=== PATIENT | female | born 1965 | race Caucasian/White ===

== ENCOUNTER 2017-10-11 06:37 | Day surgery (SDC) | payer BC ==
[~2017-10-11] VITALS: Ht 170.2 cm; Wt 144.0 kg
[~2017-10-11 06:37] MED LIST: COZA100T PO; LEVE500T8 PO; PANT40TA3 PO
[2017-10-11 07:07] VITALS: BP 137/78; PULSE 89; RESP 20; TEMP 97.8; O2SAT 96
[2017-10-11] MEDS: SODIUM CHLORIDE 0.9% 1000 ML IV SCH ×2 (07:42→08:26)
[2017-10-11] MEDS ORDERED: LEVOFLOXACIN 500 MG PREMIX 100 ML - nephrostomy tube insertion or exchange IV SCH (07:45)
[2017-10-11] MEDS ORDERED: LORazepam 2 MG/ML VIAL ONE (08:40)
[2017-10-11] MEDS ORDERED: fentaNYL CITRATE 250 MCG/5 ML AMP ONE (08:40)
[2017-10-11] MEDS ORDERED: MIDAZOLAM HCL 2 MG/2 ML VIAL ONE ×2 (08:40→09:39)
[2017-10-11 10:11] VITALS: BP 99/60; PULSE 87; RESP 18; TEMP 97.9; O2SAT 96
[2017-10-11 10:26] VITALS: BP 102/74; PULSE 84; RESP 17; O2SAT 98
--- NOTE | 2017-10-11 10:27 | PD.RAD ---
Post Procedure Progress Note Pre Procedure Diagnosis: (1) Renal calculus, left Post Procedure Diagnosis: (1) Renal calculus, left Procedure Date: Oct 11, 2017 Supervising Radiologist: Herson Avila Proceduralist/Assist: Moises Sanchez, RT(R), Belia Samson RT(R) Anesthesia: Local, Analgesia, Conscious Sedation Plan of Activity Patient to Unit: ROPU Patient Condition: Good See PACS Report for procedural detail/treatment Drainage Procedure Procedure 1 Imaging Guidance: Fluoroscopy Procedure Type: Nephrostomy (8Fr PCN), Ureteral Stent (5 Fr pigtail to bladder) Procedure: Placement Drainage: [place] drainage Fluid Description: Yellow Findings: Multiple renal calculi. Existing ureteric stent. Upper pole access to facilitate multiple nephrolithotomy. 5Fr pigtail to bladder. Possible stenosis near UPG (difficult to pass catheter into proximal ureter) Herson Avila MD Oct 11, 2017 10:27
[2017-10-11 10:56] VITALS: BP 121/76; PULSE 87; RESP 18; O2SAT 97
[2017-10-11 11:58] VITALS: BP 93/63; PULSE 83; RESP 20; TEMP 97.8; O2SAT 99
[2017-10-11] MEDS ORDERED: SODIUM CHLORID 0.9% 500 ML IV PRN (12:00)
[2017-10-11] MEDS ORDERED: INSULIN HUMAN REGULAR 1,000 UNITS/10 ML VIAL SQ PRN (12:00)
[2017-10-11] MEDS ORDERED: LACTATED RINGER'S 1000 ML IV PRN (12:00)
[2017-10-11] MEDS ORDERED: CHLORHEXIDINE GLUCONATE 2 % 1 PACK (2 CLOTHS) TOPICAL PRN (12:00)
[2017-10-11] MEDS ORDERED: POVIDONE IODINE 5% (ANTISEPSIS KIT) 4 APPLICATIONS EACH NARE PRN (12:00)
[2017-10-11] MEDS ORDERED: METOPROLOL TARTRATE 25 MG TAB PO PRN (12:00)
[2017-10-11] MEDS ORDERED: SODIUM CHLORIDE 0.9% IV SCH ×2 (12:15)
[2017-10-11] MEDS ORDERED: GENTAMICIN IV SCH ×2 (12:15)
[2017-10-11] MEDS ORDERED: oxyCODONE/ACETAMINOPHEN 5 MG/325 MG TAB ONE (13:22)
[2017-10-11] MEDS ORDERED: oxyCODONE/ACETAMINOPHEN 5 MG/325 MG TAB PO ONE (13:45)
--- NOTE | 2017-10-12 14:42 | RADRPT ---
EXAM DATE/TIME: 10/11/2017 09:48 [facility] COMPARISON: No previous studies available for comparison. INDICATIONS : Patient presents with renal calculi in need of nephrostomy tube for procedure. MEDICAL HISTORY : HTN Kidney Stone Migraines SURGICAL HISTORY : Cholecystectomy Gallbladder Removal ENCOUNTER: Initial ACUITY: 3 weeks PAIN SCORE: 0/10 FLUORO TIME: 12.1 minutes IMAGE SERIES: 10 SEDATION TIME: 45 minutes CONTRAST: 15 cc Omnipaque (iohexol) 350 MEDICATION(S): 1.) 6 mg midazolam (Versed) IV 2.) 250 mcg fentanyl (Sublimaze) IV 3.) 2 mg lorazepam (Ativan) IV DEVICE(S): 1.) 8 Salvadorean nephrostomy catheter 2.) 5F 90cm pigtail catheter PROCEDURE : 1. fluoroscopic guided nephrostomy tube placement 2. Fluoroscopic-guided ureteric stent placement The risks, benefits and alternatives to the procedure were explained and verbal and written consent w as obtained. The site was prepped in sterile fashion. Full sterile technique was used, including ca p, mask, sterile gloves and gown and a large sterile sheet. Hand hygiene and 2% chlorhexidine and/or betadine/alcohol prep was utilized per protocol for cutaneous antisepsis. The skin and subcutaneous tissues were infiltrated with local anesthetic solution. Patient has an existing double-J stent in the left renal collecting system. After appropriate local a nesthetic, a 7 inch 22 Salvadorean spinal needle is advanced into the proximal [place] loop. Inner stylet was removed with free flow of urine. CO2 was injected through the needle to delineate the posterior avery ceal system. As the procedure was being performed for nephrolithotomy, and upper pole calyx was selec coreen. The overlying skin was anesthetized with an additional 7 cc 1% Xylocaine and a dermatotomy made with an 11 blade scalpel. The cutaneous tissues were bluntly dissected. The 18 gauge Rock blunt needle was advanced into the upper pole calyx. No 35 wire was advanced and the outer cannula. A hockey-stick catheter and Glidewire were then manipulated through the UPJ down the ureter and into the urinary bladder. Of note, appears to be some degree of stenosis at the UPJ. With a stiff glide wire in the bladder, a 6 Salvadorean, 25 cm side-port sheath was advanced over the wire and into the ureter. A second wire was placed through the sheath. Over the stiff Glidewire, a 5 Fren ch pigtail catheter was advanced into the urinary bladder. This was capped. A second 8 Salvadorean nephros cally tube was then advanced over the remaining wire and the [place] loop was curled in the renal pelvis. Both catheters were secured to the skin surface with 2-0 silk suture. CONCLUSION: 1. Successful placement of 8 Salvadorean nephrostomy tube in the left renal collecting system. 2. Percutaneous placement of a 5 Salvadorean pigtail catheter to the urinary bladder to facilitate future nephrolithotomy Herson Avila MD on October 12, 2017 at 14:35 Board Certified Radiologist. This report was verified electronically.
== END 2017-10-11 14:00 | disposition home or self-care (01) ==
LOC: HSDC 06:37 → HRIP 06:42 → HSDC 14:00
PROVIDERS: ATTEND Urology
DX: N20.0 Calculus of kidney (principal); I10 Essential (primary) hypertension; G43.909 Migraine, unspecified, not intractable, without status migrainosus; G47.30 Sleep apnea, unspecified; Z87.442 Personal history of urinary calculi; Z53.9 Procedure and treatment not carried out, unspecified reason
CPT/HCPCS: 50695; 85610; 85730; 86850; 86900; 86901; 99152; 99153; 99211; C1729; C1769; C1887; J1956; J2060; J2250; J3010; J7030; G0463

== ENCOUNTER 2017-10-25 07:35 | Observation (INO) | payer BC ==
[~2017-10-25] VITALS: Ht 170.2 cm; Wt 143.5 kg
[2017-10-25] MEDS ORDERED: METOPROLOL TARTRATE 25 MG TAB PO PRN (08:15)
[2017-10-25] MEDS ORDERED: INSULIN HUMAN REGULAR 1,000 UNITS/10 ML VIAL SQ PRN (08:15)
[2017-10-25] MEDS ORDERED: SODIUM CHLORIDE 0.9% IV SCH ×3 (08:15→09:15)
[2017-10-25] MEDS ORDERED: CHLORHEXIDINE GLUCONATE 2 % 1 PACK (2 CLOTHS) TOPICAL PRN (08:15)
[2017-10-25] MEDS ORDERED: POVIDONE IODINE 5% (ANTISEPSIS KIT) 4 APPLICATIONS EACH NARE PRN (08:15)
[2017-10-25] MEDS ORDERED: SODIUM CHLORID 0.9% 500 ML IV PRN (08:15)
[2017-10-25] MEDS ORDERED: GENTAMICIN IV SCH ×3 (08:15→09:15)
[2017-10-25] MEDS ORDERED: LACTATED RINGER'S 1000 ML IV PRN (08:15)
[2017-10-25] MEDS ORDERED: IOHEXOL 300 INJ 100 ML IV ONE (10:09)
[2017-10-25] MEDS ORDERED: LIDOCAINE HCL 1% PF 5 ML SYRINGE OTHER ONE (12:00)
[2017-10-25] MEDS ORDERED: PROPOFOL 200 MG/20 ML AMP IV ONE (12:00)
[2017-10-25] MEDS ORDERED: ONDANSETRON HCL 4 MG/2 ML VIAL IV PUSH ONE (12:00)
[2017-10-25] MEDS ORDERED: DEXAMETHASONE SOD PHOS 4 MG/ML VIAL IV ONE (12:00)
[2017-10-25] MEDS ORDERED: GLYCOPYRROLATE 1 MG/5 ML SYRINGE IV PUSH ONE (12:00)
[2017-10-25] MEDS ORDERED: SUCCINYLCHOLINE CHLORIDE 100 MG/5 ML SYRINGE IV PUSH ONE (12:00)
[2017-10-25] MEDS ORDERED: ROCURONIUM INJ 50 MG/5 ML SYRINGE IV PUSH ONE (12:00)
[2017-10-25] MEDS ORDERED: NEOSTIGMINE 5 MG/5 ML SYRINGE IV PUSH ONE (12:00)
[2017-10-25] MEDS ORDERED: oxyCODONE/ACETAMINOPHEN 5 MG/325 MG TAB PO PRN (13:30)
[2017-10-25] MEDS ORDERED: MORPHINE SULFATE 4 MG/ML INJ IV PUSH PRN (13:30)
[2017-10-25] MEDS ORDERED: ONDANSETRON HCL 4 MG/2 ML VIAL IV PUSH PRN (13:30)
[2017-10-25] MEDS ORDERED: DO NOT ADM ANY ANTICOAGULANT DRUGS PRN (13:33)
[2017-10-25] MEDS ORDERED: *morphine SULFATE 10 MG/ML PERIprocedure ONLY ONE (13:37)
[2017-10-25] MEDS ORDERED: *ONDANSETRON 4 MG VIAL PERIprocedural Use ONLY ONE (13:39)
[2017-10-25] MEDS: SODIUM CHLOR 0.9% 1000 ML INJ 1,000 ML IV SCH ×2 (14:00→22:09)
[2017-10-25 14:24] LABS: AUTOMATED NEUTROPHIL # 4.9 TH/MM3 (1.8-7.7); BASOPHIL # 0.1 TH/MM3 (0-0.2); BASOPHIL % 0.6 % (0.0-2.0); EOSINOPHIL # 0.2 TH/MM3 (0-0.4); HEMATOCRIT 36.7 % (35.0-46.0); HEMOGLOBIN 12.1 GM/DL (11.6-15.3); LYMPHOCYTE # 2.7 TH/MM3 (1.0-4.8); MEAN CELL VOLUME 80.2 FL (80.0-100.0); MEAN CORPUSCULAR HEMOGLOBIN 26.3 PG (27.0-34.0); MEAN CORPUSCULAR HGB CONC 32.8 % (32.0-36.0); MEAN PLATELET VOLUME 8.1 FL (7.0-11.0); MONO % 6.6 % (0.0-8.0); MONOCYTE # 0.6 TH/MM3 (0-0.9); NEUT % 58.8 % (16.0-70.0); PLATELET COUNT 395 TH/MM3 (150-450); RED BLOOD COUNT 4.58 MIL/MM3 (4.00-5.30); RED CELL DISTRIBUTION WIDTH 15.1 % (11.6-17.2); WHITE BLOOD COUNT 8.3 TH/MM3 (4.0-11.0)
[2017-10-25 14:42] LABS: BICARBONATE 24.6 MEQ/L (21.0-32.0); CALCIUM 9.1 MG/DL (8.5-10.1); CREATININE 1.14 MG/DL (0.50-1.00)
--- NOTE | 2017-10-25 14:51 | RADRPT ---
EXAM DATE/TIME: 10/25/2017 11:31 [facility] COMPARISON: No previous studies available for comparison. INDICATIONS : Percutaneous neprholithotripsy with stent placement. OR. MEDICAL HISTORY : Hypertension. Renal calculi. SURGICAL HISTORY : Cholecystectomy. Caesarian section. ENCOUNTER: Initial ACUITY: 1 day PAIN SCORE: Non-responsive. LOCATION: Left abdomen FINDINGS: A double-J stent is present on the left in the expected position. No renal stones are identified. CONCLUSION: 1. Postsurgical changes as above. Osman Lujan MD on October 25, 2017 at 14:50 Board Certified Radiologist. This report was verified electronically.
[2017-10-25 15:00] VITALS: BP 141/77; PULSE 59; RESP 18; TEMP 96.3; O2SAT 97
--- NOTE | 2017-10-25 15:14 | MP ---
cc: Ajit Limon MD DATE OF OPERATION: 10/25/2017 DATE OF PROCEDURE: 10/25/2017 PREOPERATIVE DIAGNOSIS: Left renal calculi, greater than 2 cm. POSTOPERATIVE DIAGNOSIS: Left renal calculi, greater than 2 cm. PROCEDURE PERFORMED: Left percutaneous nephrolithotomy. SURGEON: Ajit Limon MD ANESTHESIA: General. COMPLICATIONS: None. PREOPERATIVE ANTIBIOTICS: Gentamicin 470 mg IV. DRAINS: 1. A 16-Cypriot Ojeda catheter to gravity drainage. 2. A 6 x 26 double-J left ureteral stent with string attached. BLOOD LOSS: 15 mL. FLUIDS: Crystalloid per Anesthesia. DISPOSITION: Stable to recovery. INDICATION FOR PROCEDURE: The patient is a 52-year-old female with a longstanding history of kidney stones, who late last year presented to [facility] with urosepsis secondary to a large 2 cm left UPJ stone. She underwent cystostomy and stent placement by Dr. Beck. She also had a number of other stones in that kidney with a stone burden greater than 3 cm. She was then referred for percutaneous nephrolithotomy. She underwent placement of a nephrostomy tube 2 weeks ago and she presents today for definitive treatment of her stones. After risks, benefits and alternatives were explained to the patient, the patient elected proceed, and informed consent was obtained. DETAILS OF PROCEDURE: The patient was properly identified, brought back to the operating room where she remained supine on her stretcher. She was then placed under general anesthetic without difficulty. Preoperative antibiotics in the form of gentamicin 470 mg IV were given before the start of the procedure. A 16-Cypriot Ojeda catheter was then placed under sterile technique. Dark yellow urine returned. She was then flipped into prone position, where all pressure points were padded. She was then prepped and draped in normal sterile surgical fashion. A activities director scouting fluoroscopic image was taken, which showed the presence of the indwelling stent, as well as the nephrostomy tube and the catheter all the way down to her bladder. An antegrade nephrostogram was performed, which showed multiple large filling defects in her left renal pelvis, consistent with the large renal calculi. Using a Super Stiff Amplatz wire, I then passed the wire through the catheter down into the bladder under the guidance of fluoroscopy. The catheter was then removed. I attempted to then pass the dual lumen catheter over the wire but there was a kink in the wire itself and I was unable to successfully pass the dual lumen catheter all the way into her proximal ureter. Therefore, I extended the skin incision approximately 2 cm. I then used the NephroMax to dilate the fascial tract into the left kidney, which was upper pole access. At this point, I then passed the rigid nephroscope through the working sheath into her kidney, where I came across the stent which had a significant amount of calcifications associated with 1 of the large stones. Using a rigid grasper, I was able to grasp the stent and remove it in its entirety. It was slightly difficult to remove, likely due to the calcifications; however, it did come out in its entirety. I then reinserted the rigid grasper and several smaller fragments were removed in their entirety and these will be sent off for analysis. The large stone, which appeared to be approximately 1.5 cm in size, I used the CyberWand to fragment it into smaller pieces and these were subsequently removed. As I advanced the scope closer to the UPJ, I then followed the stone into the lower pole, which there was a significant amount of large fragments of the stone including another 1 cm fragment. These were all subsequently removed; however, the lower pole santosh appeared to be slightly thinned out and a questionable perforation of the small santosh. At this time, I then exchanged the rigid nephroscope for the flexible cystoscope and carefully examined the rest of the rest of the kidney. I then went down the proximal ureter. Several small fragments were removed with the Zero Tip basket. At this time, the rest of the ureter appeared to be intact. I then performed an antegrade nephrostogram through the flexible cystoscope and there was some ____ through the lower pole of the kidney but the ureter itself remained intact as contrast was seen down the ureter. The wire remained in place as well. Due to these findings, I then decided to pass a 6 x 16 stent over the wire antegrade style into her bladder. This was done successfully under the guidance of fluoroscopy. At this time I then removed the working sheath. The string that was left on the stent was then secured to her skin. This concluded the procedure. The patient was then placed back in supine position. She was extubated and sent to recovery in stable condition. She will be admitted for routine postoperative care. MD TIMMY Stanton/SHAHRAM , 02:09 PM , 03:13 PM
[2017-10-25 20:07] VITALS: BP 144/79; PULSE 72; RESP 18; TEMP 97.2; O2SAT 98
[2017-10-25] MEDS: levETIRAcetam 500 MG TAB PO SCH (20:21)
[2017-10-25] MEDS: DOCUSATE SODIUM 100 MG CAP PO SCH (20:21)
[2017-10-25] MEDS: oxyCODONE/ACETAMINOPHEN 5 MG/325 MG TAB PO PRN (22:10)
[2017-10-25 22:44] VITALS: BP 129/65; PULSE 67; RESP 18; TEMP 96.7; O2SAT 98
[2017-10-26] MEDS: SODIUM CHLOR 0.9% 1000 ML INJ 1,000 ML IV SCH ×2 (04:28→14:00)
[2017-10-26 04:30] VITALS: BP 133/74; PULSE 57; RESP 18; TEMP 97.1; O2SAT 96
[2017-10-26 08:00] VITALS: BP 121/64; PULSE 49; RESP 17; TEMP 95.7; O2SAT 98
[2017-10-26] MEDS: DOCUSATE SODIUM 100 MG CAP PO SCH (08:37)
[2017-10-26] MEDS: levETIRAcetam 500 MG TAB PO SCH (08:37)
[2017-10-26] MEDS ORDERED: PANTOPRAZOLE SOD 40 MG DELAYED RELEASE TAB PO SCH (09:00)
[2017-10-26] MEDS ORDERED: LOSARTAN 50 MG TAB PO SCH (09:00)
--- NOTE | 2017-10-26 09:43 | RADRPT ---
EXAM DATE/TIME: 10/26/2017 09:23 [facility] COMPARISON: ABDOMEN KUB ONLY, October 25, 2017, 11:31. INDICATIONS : Evaluate for renal stone. Status post left percutaneous nephrolithotomy. ORAL CONTRAST: No oral contrast ingested. RADIATION DOSE: 18.46 CTDIvol (mGy) MEDICAL HISTORY : Cardiovascular disease. Hypertension. Renal calculi. SURGICAL HISTORY : Cholecystectomy. Renal stents ENCOUNTER: Initial ACUITY: 2 days PAIN SCALE: 3/10 LOCATION: Left flank TECHNIQUE: Volumetric scanning of the abdomen and pelvis was performed. Using automated exposure control and ad justment of the mA and/or kV according to patient size, radiation dose was kept as low as reasonably achievable to obtain optimal diagnostic quality images. DICOM format image data is available electro nically for review and comparison. FINDINGS: There is hepatic steatosis identified. Right kidney, spleen, pancreas, adrenals, stomach, small bowel and large bowel, uterus and ovaries are unremarkable. There is a small amount of air in the vagina a nd urinary bladder. Within the urinary bladder a calculus is present measuring 1.3 cm on axial image 153. A double-J nephroureteral stent is also present. At the upper pole of the left kidney is 6.1 mm calculus is present. There is also a 4 mm nonobstructing left lower pole renal calculus. There is mil d volume loss of the left kidney, 2 punctate calcifications at the lower pole, mild dilatation of the intrarenal collecting system as well as a small amount of air within the left upper pole collecting system, periureteral stranding and mild dilatation of the proximal left ureter. There are degenerativ e changes of the spine noted. Lung bases are clear. CONCLUSION: Postsurgical changes status post nephrolithotomy with stent placement. Renal calculi and bladder calc ulus present. Hepatic steatosis. Dylan Najera MD on October 26, 2017 at 9:39 Board Certified Radiologist. This report was verified electronically.
[2017-10-26] MEDS ORDERED: IOHEXOL 300 INJ 100 ML IV ONE (10:09)
[2017-10-26 12:00] VITALS: BP 122/78; PULSE 55; RESP 18; TEMP 96.8; O2SAT 100
[2017-10-26] MEDS: oxyCODONE/ACETAMINOPHEN 5 MG/325 MG TAB PO PRN (12:21)
--- NOTE | 2017-10-26 13:34 | HHI.PR ---
Subjective Patient symptoms today 52y.o f is s/p Lt PCNL and stent placement yesterday 10/25/17. She is POD#1. No issues overnight. Pasin is well controlled with meds, she states that does not ask for pain meds too often. Hematuria is improving, no difficulties to void. no f/c/n/v. Ambulates well, and tolerates regular diet well too. Admits passing flatus. VS and labs are stable. CT showed left stent in place, several left renal stone fragments and post/op changes. Also has a bladder stone possibly from h/o previous stent/calcifications. She states that voided after CT and possibly passed it. Objective Vital Signs Vital Signs Date Time Temp Pulse Resp B/P (MAP) Pulse Ox O2 Delivery O2 Flow Rate FiO2 10/26/17 12:00 96.8 55 18 122/78 (93) 100 10/26/17 08:42 Room Air 10/26/17 08:00 95.7 49 17 121/64 (83) 98 10/26/17 04:30 97.1 57 18 133/74 (93) 96 10/25/17 22:44 96.7 67 18 129/65 (86) 98 10/25/17 20:07 97.2 72 18 144/79 (100) 98 10/25/17 18:55 Room Air 10/25/17 16:18 18 10/25/17 15:00 96.3 59 18 141/77 (98) 97 10/25/17 14:15 57 13 93/47 (62) 100 Room Air 10/25/17 14:00 62 19 91/49 (63) 100 Room Air 10/25/17 13:45 77 16 93/54 (67) 99 Nasal Cannula 2 10/25/17 13:31 98.0 84 12 129/68 (88) 99 Nasal Cannula 4 Intake & Output 10/26/17 10/26/17 07:00 19:00 Intake Total 2777 ml Output Total 200 ml 200 ml Balance 2577 ml -200 ml Intake Oral 960 ml IV Total 1817 ml Output Urine Total 200 ml 200 ml # Voids 5 2 # Bowel Movements 0 Result Diagram: 10/25/17 1345 10/25/17 1345 Other Results Normal breath sounds.RRR Abd soft NT, NF Dressing at the back is dry and clean. + Lt back tenderness. Imaging Last 24 hours Impressions Abdomen/Pelvis CT 10/26/17 0600 Signed Impressions: Service Date/Time: Thursday, October 26, 2017 09:23 - CONCLUSION: Postsurgical changes status post nephrolithotomy with stent placement. Renal calculi and bladder calculus present. Hepatic steatosis. Dylan Najera MD Medications and IVs Current Medications Medications (Trade) Dose Ordered Sig/Lyndon Route Start Time Stop Time Status Last Admin (Lopressor) 25 mg CLERICAL OFFICE PRN PO 10/25/17 08:15 10/28/17 08:14 (Betadine 5% Antisepsis Kit) 1 applic CLERICAL OFFICE PRN EACH NARE 10/25/17 08:15 10/28/17 08:14 10/25/17 09:15 (Chlorhexidine 2% Cloth) 3 pack CLERICAL OFFICE PRN TOPICAL 10/25/17 08:15 10/28/17 08:14 10/25/17 09:15 (NovoLIN R INJ) See Protocol Table ... CLERICAL OFFICE PRN SQ 10/25/17 08:15 10/28/17 08:14 Gentamicin Sulfate 470 mg/ Sodium Chloride 111.75 ml @ 200 mls/ hr CLERICAL OFFICE IV 10/25/17 09:15 10/28/17 08:14 10/25/17 11:10 Iohexol 100 ml @ 0 mls/hr ONCE ONCE IV 10/26/17 10:09 10/27/17 10:08 Sodium Chloride 1,000 ml @ 125 mls/hr Q8H IV 10/25/17 14:00 10/26/17 04:28 (Morphine Inj) 4 mg Q3H PRN IV PUSH 10/25/17 13:30 10/25/17 15:56 (Percocet 5-325 Mg) 2 tab Q4H PRN PO 10/25/17 13:30 10/26/17 12:21 (Percocet 5-325 Mg) 1 tab Q4H PRN PO 10/25/17 13:30 (Colace) 100 mg BID PO 10/25/17 21:00 (Zofran Inj) 4 mg Q6H PRN IV PUSH 10/25/17 13:30 (Keppra) 500 mg BID PO 10/25/17 21:00 10/26/17 08:37 (Cozaar) 100 mg DAILY PO 10/26/17 09:00 10/26/17 08:37 (Protonix) 40 mg DAILY PO 10/26/17 09:00 10/26/17 08:37 Miscellaneous Information ALL NURSING DEPARTME... UNSCH PRN .XX 10/25/17 13:33 10/26/17 13:32 Assessment and Plan Assessment and Plan 52y.o F s/p Lt PCNL and stent placement on 10/25/17 Pt is feeling well, pain controlled Ambulates and tolerates diet with no issues She is ready for d/c later today Will need Rx for pain meds and antbx Follow up in clinic in 1-2weeks for stent removal with Erik Serrano Oct 26, 2017 13:34
[2017-10-26] MEDS ORDERED: CIPR500T2 PO (13:56)
[2017-10-26] MEDS ORDERED: OXYC1TAB63 PO ×2 (13:56→14:11)
== END 2017-10-26 16:12 | disposition home health service (06) ==
LOC: HSDC 07:35 → HSDI 13:22 → N06B 14:45
PROVIDERS: ADMIT Urology; ATTEND Urology
DX: N20.0 Calculus of kidney (principal); N21.0 Calculus in bladder; I10 Essential (primary) hypertension; K76.0 Fatty (change of) liver, not elsewhere classified
CPT/HCPCS: 00862; 50081; 50395; 74018; 74176; 76000; 80048; 82365; 82370; 85025; 88300; 94150; 96365; 96366; 96375; C1726; C1769; C2617; G0378; J0330; J0690; J1100; J1580; J2270; J2405; J2710; J3010; J7030; J7120; Q9967